=== PATIENT | female | born 1980 | race Caucasian/White ===

== ENCOUNTER 2017-07-09 18:07 | Emergency (ER) | payer OTHER ==
[~2017-07-09] VITALS: Ht 167.6 cm; Wt 73.5 kg
[~2017-07-09 18:07] MED LIST: PRENATAL TABLE1 EAC1 PO
== END 2017-07-09 21:54 | disposition home or self-care (01) ==
LOC: ER 18:07
DX: L30.8 Other specified dermatitis (principal)